=== PATIENT | male | born 1995 | race African-American/Black ===

== ENCOUNTER 2021-06-17 22:07 | Observation (INO) | payer SELFPAY ==
--- NOTE | ~2021-06-17 | XR_ITS ---
EXAMINATION: XR chest 2V DATE: 06/17/2021 23:07 INDICATION: Chest pain, body aches and diarrhea TECHNIQUE: PA and lateral views of the chest were obtained. COMPARISON: None FINDINGS: The lungs are clear with no focal airspace opacities, pulmonary edema, pleural effusion or pneumothor ax. The cardiomediastinal silhouette is normal. Visualized bones and soft tissues are unremarkable. IMPRESSION: 1. No acute cardiopulmonary disease. Reviewed, dictated and finalized at location A.
--- NOTE | ~2021-06-17 | CT_ITS ---
EXAMINATION: CT abdomen pelvis w con DATE: 06/18/2021 02:35 INDICATION: Abdominal pain, nausea, vomiting and diarrhea for 2 days TECHNIQUE: Computed tomography (CT) of the abdomen and pelvis was performed with 100 CC Omnipaque 350 intravenous contrast. Automated exposure control and iterative reconstruction technique were employe d. Exam dose: 525.69 mGy-cm total exam DLP. COMPARISON: 06/2021 PA and lateral chest FINDINGS: Normal heart size. The lung bases are clear of infiltrate or consolidation. No pericardial or pleural effusion. Bilateral gynecomastia. The liver, gallbladder, bile ducts, pancreas, pancreatic duct and spleen are unremarkable. Normal morphology of the adrenal glands. No renal mass lesion or urinary tract calculus or hydroureteronephrosis. Normal caliber of the abdominal aorta. No intraperitoneal or retroperitoneal or pelvic mass lesion or adenopathy or ascites. The urinary bladder and prostate gland are unremarkable. The appendix measures up to 8 mm diameter with suggestion of small thickening. No periappendiceal fat stranding or fluid is noted. Recommend clinical correlation for possible acute appendicitis. Fluid levels are noted in the nondilated nonobstructed: Irregular consistent with history of diarrhea . No bowel obstruction or colon wall thickening, pneumatosis or intraperitoneal free air. Deformity of the right femoral head, possibly due to osteonecrosis. IMPRESSION: Appendiceal diameter up to 8 mm with suggestion of some thickening of the appendiceal wa ll. Acute appendicitis is not excluded. Clinical correlation is advised. Colonic air-fluid levels, consistent with history of diarrhea; no bowel obstruction or colon wall thi ckening or intraperitoneal free air Right femoral head chronic deformity Reviewed, dictated and finalized at Location [facility]. Reviewed, dictated and finalized at location A. IMPRESSION: Appendiceal diameter up to 8 mm with suggestion of some thickening of the appendiceal wall. Acute appendicitis is not excluded. Clinical correlat ion is advised. Colonic air-fluid levels, consistent with history of diarrhea; no bowel obstruc tion or colon wall thickening or intraperitoneal free air Right femoral head chronic deformity
[2021-06-17 22:31] VITALS: BP 136/84; PULSE 115; RESP 16; TEMP 37.3; O2SAT 99
--- NOTE | 2021-06-17 22:41 | ECG_ITS ---
Measurements Intervals [place] Rate: 111 P: 54 GA: 151 QRS: 31 QRSD: 94 T: 31 QT: 288 QTc: 392 Interpretive Statements SINUS TACHYCARDIA ABNORMAL ECG Electronically Signed On 06-18-2021 6:33:46 CDT by Jamari Smith D.O.
[2021-06-17 23:04] LABS: Basophils Percent Auto 0.2 % (0.2-1.2); Hematocrit 51.1 % (42.0-52.0); Hemoglobin 16.2 g/dL (14.0-18.0); Immature Granulocyte Absolute 0.02 K/mm3 (0.00-0.031); Immature Granulocyte Percent A 0.2 % (0-0.5); Lymphocytes Absolute Auto 1.88 K/mm3 (0.9-3.2); Lymphocytes Percent Auto 19.7 % (18.3-44.2); Mean Corpuscular HGB Conc 31.7 g/dl (32-36); Mean Corpuscular Hemoglobin 27.1 pg (26-34); Mean Corpuscular Volume 85.6 fl (80-100); Mean Platelet Volume 9.5 fl (7.4-10.4); Monocytes Absolute Auto 0.6 K/mm3 (0.1-0.6); Monocytes Percent Auto 6.3 % (2.6-8.5); Neutrophils Percent Auto 73.6 % (45.5-73.1); Platelet Count Result 278 k/mm3 (150-375); Red Blood Count 5.97 M/mm3 (4.6-6.20); Red Cell Distribution Width 12.5 % (11.5-14.5); White Blood Count 9.6 K/mm3 (4.5-10.0)
[2021-06-17 23:19] LABS: Alanine Aminotransferase 32 U/L (4-50); Albumin Level 5.5 g/dL (3.5-5.1); Alkaline Phosphatase 98 U/L (38-126); Anion Gap 15 mmol/L (8-16); Aspartate Amino Transferase 36 U/L (17-59); Bilirubin,Total 1.6 mg/dL (0.2-1.3); Blood Urea Nitrogen 23 mg/dL (9-20); Calcium 9.8 mg/dL (8.4-10.2); Carbon Dioxide 19 mmol/L (22-30); Chloride 102 mmol/L (98-107); Estimated CRCL calculation 82 ml/min; Estimated Glomerular Filt Rate > 60; Glucose 96 mg/dL (65-110); Lipase 31 U/L (23-300); Sodium 136 mmol/L (137-145)
[2021-06-17 23:30] LABS: Troponin I < 0.012 ng/mL (0.000-0.034)
--- NOTE | 2021-06-18 01:36 | PC.NURSE ---
pt states he is unable to void at this time.
--- NOTE | 2021-06-18 01:48 | ED.NAVMDI ---
HPI - Nausea/Vomiting/Diarrhea General Chief complaint: Nausea/Vomiting/Diarrhea Stated complaint: Diarrhea, bodyaches Time Seen by Provider: 06/18/21 01:34 Source: patient Mode of arrival: ambulatory Limitations: no limitations History of Present Illness HPI Narrative: Patient is a 26-year-old male, HIV positive, on current retrovirals, presenting to the emergency department for evaluation of nausea, vomiting, abdominal pain and diarrhea. Patient reports he has been unwell over the past 48 hours with difficulty tolerating solid food intake, as well as watery diarrhea. Patient reports generalized abdominal pain that seems to localize in the right and left lower quadrant. He denies any significant flank tenderness. He reports mild dysuria without hematuria. Patient states he has been able to tolerate water, small amount of liquid today. He denies rhinorrhea, congestion, cough or shortness of breath. He denies chest pain. He denies recent sick contacts. He is not vaccinated for COVID and denies history of known COVID infection. Patient has been compliant with his HIV medications. He follows at [facility]. Related Data Allergies Allergy/AdvReac Type Severity Reaction Status Date / Time No Known Allergies Allergy Verified 06/17/21 22:35 Review of Systems Review of Systems: CONSTITUTIONAL: Reports subjective fever and chills EYES: Denies visual changes, redness, or discharge. ENT: Denies rhinorrhea, congestion, sore throat, or otalgia. CARDIOVASCULAR: Denies chest pain, palpitations, or edema. RESPIRATORY: Denies cough or dyspnea. GASTROINTESTINAL: Reports abdominal pain, nausea, vomiting and diarrhea GENITOURINARY: Reports dysuria without hematuria SKIN: Denies rash or itching. MUSCULOSKELETAL: Denies back pain, joint pain, or myalgia. NEUROLOGIC: Denies headache, numbness, or weakness. [facility] Social History Social History (Updated 06/18/21 @ 01:51 by Marnie Marc MD) Smoking status: Never smoker Alcohol intake: never Substance use: current Substance use type: marijuana Gender identity (if verbalized by the patient): Male Sexual Orientation (if Verbalized by the Patient): Lesbian, [place], or Homosexual Exam Narrative: GENERAL: Awake, alert, conversant HEAD: Normocephalic, atraumatic. EYES: PERRLA and EOMI. ENT: Nares clear, no rhinorrhea or epistaxis. Mucous membranes dry. NECK: Supple. CHEST: No respiratory distress, breathing even and non labored HEART: Tachycardic rate, sinus rhythm ABDOMEN:Non distended, mild tenderness throughout, mostly in the right and left lower quadrant without rebound, rigidity or guarding, no flank tenderness bilaterally EXTREMITIES: Normal range of motion. No edema. SKIN: Warm, dry, no rash. NEURO:No focal deficits. Alert and oriented x3 Course Vital Signs Vital signs: Vital Signs Temperature 37.3 C 06/17/21 22:31 Pulse Rate 115 H 06/17/21 22:31 Respiratory Rate 16 06/17/21 22:31 Blood Pressure 136/84 06/17/21 22:31 Pulse Oximetry 99 06/17/21 22:31 Temperature 37.3 C 06/17/21 22:31 Pulse Rate 115 H 06/17/21 22:31 Respiratory Rate 16 06/17/21 22:31 Blood Pressure 136/84 06/17/21 22:31 Pulse Oximetry 99 06/17/21 22:31 MDM - Nausea/Vomiting/Diarrhea MDM Narrative Medical decision making narrative: Patient presenting for evaluation of abdominal pain, nausea, vomiting, diarrhea. At time of assessment, ABCs are intact and vital signs are notable for tachycardia. Laboratory results show no leukocytosis but patient does have a left shift. No severe electrolyte derangement. No acute kidney injury. CT scan is concerning for colonic contents which may be due to sequela of diarrheal illness. Patient also with mildly enlarged appendix measuring 8 mm at its midportion. There is no evidence of adjacent inflammatory change. On reassessment, patient does have tenderness in the right lower quadrant without rebound, rigidity or guardin
[2021-06-18] MEDS: MORPHINE SULFATE (*CRX) 4 MG/ML INJ IV PUSH (02:12)
[2021-06-18] MEDS: SODIUM CHLORIDE 0.9% IV 1,000 ML 999 ML IV CONT (02:14)
[2021-06-18] MEDS: DICYCLOMINE HCL INJ 20 MG/2 ML VIAL IM (02:14)
[2021-06-18] MEDS: ONDANSETRON INJ 4 MG/2 ML VIAL IV PUSH (02:14)
[2021-06-18 03:18] LABS: SARS-CoV-2 RNA PCR Negative
[2021-06-18 03:44] LABS: Appearance Urine Clear (Clear); Bilirubin Urine 1+ (Negative); Blood Urine 2+ (Negative); Color Urine Yellow (Yellow); Glucose Urine UA Negative (Negative); Ketones Urine Trace mg/dL (Negative); Leukocyte Esterase Ur Negative LEU/UL (Negative); Nitrate Urine Negative (Negative); Protein Urine 3+ mg/dL (Negative); Urobilinogen Urine 0.2 mg/dL (<2.0)
[2021-06-18 03:57] LABS: Mucus Urine Moderate /lpf; Squamous Epithelial Cell Urine Rare /hpf (Few); WBC Urine 0-3 /hpf
[2021-06-18 04:02] LABS: Add Urine Microscopic? YES
[2021-06-18 07:00] VITALS: BMI 32.5
--- NOTE | 2021-06-18 07:00 | ADMGEN ---
This patient, Pasquale Broussard, was admitted to [facility] Surg Room 316-02. Patient/family oriented to hospital policies and general routines including ID bracelet, bed and alarms, visiting hours, pain management, procedures, bathroom and other care routines, personal items, smoking policy, room service/diet, and visiting hours. Information on how to activate the Rapid Response Team has been discussed. Patient/Family are encouraged to report perceived risks to care and to ask questions if they do not understand what they are told or what they should do.
--- NOTE | 2021-06-18 10:13 | PM.CNGS ---
Assessment and Plan Assessment and plan (1) Colitis: Code(s): K52.9 - Noninfective gastroenteritis and colitis, unspecified Status: Acute Assessment and Plan: Patient presented with nausea, vomiting, and diarrhea. He was found to have right lower quadrant abdominal pain and tenderness in the ER. CT scan of abdomen and pelvis reviewed and discussed with the patient in detail. There was findings of a mildly dilated appendix measuring 8 mm with no surrounding inflammatory stranding. When seeing the patient this morning, he is no longer having any abdominal pain and his abdominal exam is completely benign. He did not have any right lower quadrant tenderness on exam. Clinically this correlates more with colitis and less likely acute appendicitis. Would recommend to continue to treat for colitis with IV fluids for hydration and antiemetics. Will test for C. Diff. Okay from our standpoint to start advancing his diet. No plans for surgical intervention. (2) Abnormal CT of the abdomen: Code(s): R93.5 - Abnormal findings on diagnostic imaging of other abdominal regions, including retroperitoneum Status: Acute Assessment and Plan: CT shows a mildly enlarged appendix measuring 8 mm, but there is no surrounding inflammatory stranding. The patient's abdominal exam is completely benign. This does not correlate with acute appendicitis and would recommend treating for colitis as mentioned above. I did discuss signs and symptoms of acute appendicitis and to return to the ER if any occur once discharged. (3) HIV positive: Code(s): Z21 - Asymptomatic human immunodeficiency virus [HIV] infection status Status: Chronic Assessment and Plan: Taking Symtuza for antiretroviral therapy. Management per Hospitalist. Additional Plan I have discussed the patient's case and plan of care with Dr. Lindsey. Thank you for allowing us to see the patient in consultation. History of Present Illness Consult details Consult date: 06/18/21 Reason for consult: other (CT findings an enlarged appendix measuring 8 mm) Requesting physician: Marnie Marc MD Narrative: This is a 26-year-old male was positive for HIV, who presented to the emergency department with complaints of vomiting and diarrhea. He reports initially having diarrhea that started 2 days ago. Reports more than 10 liquid stools per day. Yesterday, he developed nausea with multiple episodes of vomiting. Denies bloody emesis or coffee-ground emesis. Reports chills, but no fevers. Yesterday, he also developed generalized abdominal pain. Reports this is a cramping abdominal pain without any alleviating factors. Also no aggravating factors. Denies any worsening pain with movement, bending, or walking. Due to the persistent symptoms, he presented to the ER for evaluation. CT scan of abdomen pelvis showed colonic air-fluid levels consistent with diarrhea, and an appendix that measures up to 8 mm in diameter with suggestion of some thickening of the appendiceal wall but no surrounding inflammatory stranding. Labs showed a white blood cell count 9600. The patient was admitted to the hospitalist service and made NPO. He was started on IV fluids, antiemetics, and analgesics. He has also been started on IV Zosyn. Our service has been consulted for surgical evaluation of the abnormal findings of the appendix on CT. The patient has as seen on the medical floor. He denies any abdominal pain at this time. He reports feeling overall better with resolution of his nausea and no vomiting since admission. He continues to have diarrhea this morning. No close contacts with similar symptoms. The patient is HIV positive and takes Symtuza daily for his antiretroviral treatment. CD4 ordered and pending, as well as STD testing. Review of Systems Review of Systems: All systems reviewed & are unremarkable except as noted in HPI and below Constitutional: Constitutio
[2021-06-18 10:21] VITALS: BP 124/80; PULSE 98; RESP 18; TEMP 36.6; O2SAT 97
--- NOTE | 2021-06-18 11:05 | PM.IMHP ---
H&P: HPI History of Present Illness Date/Time: 06/18/21 11:02 Chief Complaint: nausea vomiting Narrative: 26-year-old HIV + M presented to the emergency department with complaints of non bloody vomiting and diarrhea. Reports more than 10 liquid stools per day for the last 2 days associated w abd cramping improved w defecation, decreased appetite, and weakness. Denies fever, incontinence, tenesmus, recent travel, known sick contacts. He is compliant w HIV tx. When symptoms did not resolve he sought medical attention. CT scan of abdomen pelvis showed colonic air-fluid levels consistent with diarrhea, and an appendix that measures up to 8 mm in diameter with suggestion of some thickening of the appendiceal wall but no surrounding inflammatory stranding w/ WBC 9.6 PMFSH Past Medical History Medical History (Updated 06/18/21 @ 17:25 by Yesika Oconnor MD) HIV positive Family History Family History (Updated 06/18/21 @ 10:28 by SEAN Franklin) Other No pertinent family history Social History Social History (Updated 06/18/21 @ 17:04 by Yesika Oconnor MD) Smoking status: Never smoker Alcohol intake: current Drinks per week: 4 Substance use: current Substance use type: marijuana Other substance usage details: Occasional, weekly Gender identity (if verbalized by the patient): Male Sexual Orientation (if Verbalized by the Patient): Lesbian, [place], or Homosexual Spiritual care concerns: No Meds Home Medications and Allergies Home Medications Medication Instructions Recorded Confirmed Type afxdqcuqh-gymh-eltlz-tenof ala 1 tablet PO DAILY 06/18/21 06/18/21 History [Symtuza] ondansetron 4 mg PO Q8H PRN 7 Days #20 tablet 06/18/21 Rx Allergies Allergy/AdvReac Type Severity Reaction Status Date / Time No Known Allergies Allergy Verified 06/17/21 22:35 Vital Signs Vital Signs - 24 hr 06/17/21 22:31 06/18/21 10:21 06/18/21 15:50 Temperature 99.2 F 97.9 F 99.5 F Pulse Rate 115 H 98 94 Respiratory Rate 16 18 18 Blood Pressure 136/84 124/80 136/91 H Pulse Oximetry 99 97 98 Exam Const: General: comfortable and no acute distress HENMT: General nose exam: Normal nares present Mouth: Yes moist mucous membranes Eyes: General: appearance normal, both eyes and all related structures Neck: Neck: supple and no JVD Lymphatic: lymphadenopathy not noted Resp: Effort & Inspection: normal respiratory effort Auscultation: clear to auscultation bilaterally Cardio: Rate: regular rate Rhythm: regular rhythm GI: Inspection: non-distended GI Palp: Yes Soft to palpation, No Tenderness to palpation present (GI) and No Guarding due to palpation present (GI) Skin: General skin exam: normal color and no rashes or lesions noted Neuro: Cognition (Neuro): normal cognition Speech: normal speech Motor exam (neuro): 5/5 motor strength present throughout and Normal motor muscle tone present throughout Extrem: General: normal to inspection, normal exam except as noted, no edema and no pedal edema Psych: Mental Status: mental status grossly normal Affect: normal affect, No Sad affect present and No Anxious affect present Attitude: not belligerent Thought content: No Suicidality present and No Depressive thoughts present H&P: Results Labs Labs: Short CBC 06/17/21 Range/Units 22:48 WBC 9.6 (4.5-10.0) K/mm3 Hgb 16.2 (14.0-18.0) g/dL Hct 51.1 (42.0-52.0) % Plt Count 278 (150-375) k/mm3 BMP 06/17/21 06/17/21 22:49 22:49 Sodium Cancelled 136 L Potassium Cancelled 4.0 Chloride Cancelled 102 Carbon Dioxide Cancelled 19 L BUN Cancelled 23 H Creatinine Cancelled 1.20 Glucose Cancelled 96 Calcium Cancelled 9.8 Cardiac Enzymes 06/17/21 Range/Units 22:49 Troponin I < 0.012 (0.000-0.034) ng/mL Liver Function 06/17/21 06/17/21 Range/Units 22:49 22:49 Total Bilirubin Cancelled 1.6 H AST Cancelled 36 ALT Cancelle
[2021-06-18] MEDS: LACTATED RINGERS 1,000 ML 125 ML IV CONT (13:56)
[2021-06-18 14:50] LABS: Toxigenic C. Diff NEGATIVE (NEGATIVE)
[2021-06-18 15:50] VITALS: BP 136/91; PULSE 94; RESP 18; TEMP 37.5; O2SAT 98
[2021-06-18 22:00] VITALS: BP 126/76; PULSE 92; RESP 18; TEMP 36.2; O2SAT 98
[2021-06-19] MEDS: LACTATED RINGERS 1,000 ML 125 ML IV CONT ×2 (00:09→10:00)
[2021-06-19 06:00] VITALS: BP 125/75; PULSE 98; RESP 18; TEMP 36.6; O2SAT 98
[2021-06-19 07:08] LABS: Basophils Percent Auto 0.4 % (0.2-1.2); Eosinophils Absolute Auto 0.1 K/mm3 (0-0.3); Eosinophils Percent Auto 1.1 % (0-4.4); Hematocrit 43.9 % (42.0-52.0); Hemoglobin 14.4 g/dL (14.0-18.0); Immature Granulocyte Absolute 0.02 K/mm3 (0.00-0.031); Immature Granulocyte Percent A 0.3 % (0-0.5); Lymphocytes Absolute Auto 1.69 K/mm3 (0.9-3.2); Lymphocytes Percent Auto 21.4 % (18.3-44.2); Mean Corpuscular HGB Conc 32.8 g/dl (32-36); Mean Corpuscular Hemoglobin 27.7 pg (26-34); Mean Corpuscular Volume 84.4 fl (80-100); Mean Platelet Volume 9.6 fl (7.4-10.4); Monocytes Absolute Auto 0.7 K/mm3 (0.1-0.6); Neutrophils Absolute Auto 5.4 K/mm3 (1.3-6.7); Neutrophils Percent Auto 67.8 % (45.5-73.1); Platelet Count Result 250 k/mm3 (150-375); Red Cell Distribution Width 12.4 % (11.5-14.5); White Blood Count 7.9 K/mm3 (4.5-10.0)
[2021-06-19 07:18] LABS: Alanine Aminotransferase 22 U/L (4-50); Albumin Level 4.5 g/dL (3.5-5.1); Alkaline Phosphatase 73 U/L (38-126); Anion Gap 9 mmol/L (8-16); Aspartate Amino Transferase 33 U/L (17-59); Bilirubin,Total 1.7 mg/dL (0.2-1.3); Blood Urea Nitrogen 17 mg/dL (9-20); Calcium 8.7 mg/dL (8.4-10.2); Carbon Dioxide 25 mmol/L (22-30); Chloride 102 mmol/L (98-107); Estimated CRCL calculation 89 ml/min; Estimated Glomerular Filt Rate > 60; Glucose 82 mg/dL (65-110); Potassium 3.3 mmol/L (3.4-5.0); Sodium 136 mmol/L (137-145)
--- NOTE | 2021-06-19 12:30 | PC.NURSE ---
Patient leaving AMA . Dr Oconnor aware of AMA.
--- NOTE | 2021-06-19 15:40 | PM.DS ---
DS: Admitting Diagnosis Discharge Date 06/19/21 Admitting Diagnosis (1) Gastroenteritis: Code(s): K52.9 - Noninfective gastroenteritis and colitis, unspecified Status: Acute (2) HIV positive: Code(s): Z21 - Asymptomatic human immunodeficiency virus [HIV] infection status Status: Chronic (3) Abnormal CT of the abdomen: Code(s): R93.5 - Abnormal findings on diagnostic imaging of other abdominal regions, including retroperitoneum Status: Acute (4) Abdominal pain, acute, right lower quadrant: Code(s): R10.31 - Right lower quadrant pain Status: Acute (5) Dehydration: Code(s): E86.0 - Dehydration Status: Acute DS: Discharge Diagnosis Discharge Diagnosis (1) Dehydration: Code(s): E86.0 - Dehydration Status: Acute (2) Abnormal CT of the abdomen: Code(s): R93.5 - Abnormal findings on diagnostic imaging of other abdominal regions, including retroperitoneum Status: Acute (3) HIV positive: Code(s): Z21 - Asymptomatic human immunodeficiency virus [HIV] infection status Status: Chronic (4) Gastroenteritis: Code(s): K52.9 - Noninfective gastroenteritis and colitis, unspecified Status: Acute (5) Abdominal pain, acute, right lower quadrant: Code(s): R10.31 - Right lower quadrant pain Status: Acute (6) Left against medical advice: Code(s): Z53.29 - Procedure and treatment not carried out because of patient's decision for other reasons Status: Acute (7) Noncompliance with medication regimen: Code(s): Z91.14 - Patient's other noncompliance with medication regimen Status: Acute DS: Summary Hospital Course Reason for hospitalization: diarrhea Hospital Course: 26-year-old HIV-positive male not compliant with his retroviral HIV regimen presented to the emergency room with chief complaint of profuse watery diarrhea nonbloody for [address] imaging was concerning for possible acute appendicitis. Surgery saw patient and felt that acute appendicitis was not an active diagnosis. Unfortunately the patient left against medical advice prior to receiving it he of this stool studies that were ordered or being seen by the daily release and dupe printer. Time Spent with Patient Time attestation: Total time spent providing and/or coordinating discharge services: Exam Const: General: comfortable and no acute distress HENMT: General nose exam: Normal nares present Mouth: Yes moist mucous membranes Eyes: General: appearance normal, both eyes and all related structures Neck: Neck: supple and no JVD Lymphatic: lymphadenopathy not noted Resp: Effort & Inspection: normal respiratory effort Auscultation: clear to auscultation bilaterally Cardio: Rate: regular rate Rhythm: regular rhythm GI: Inspection: non-distended Skin: General skin exam: normal color and no rashes or lesions noted Neuro: Cognition (Neuro): normal cognition Speech: normal speech Motor exam (neuro): 5/5 motor strength present throughout and Normal motor muscle tone present throughout Extrem: General: normal to inspection, normal exam except as noted, no edema and no pedal edema Psych: Mental Status: mental status grossly normal Affect: normal affect, No Sad affect present and No Anxious affect present Attitude: not belligerent DS: Data Data Completed and Pending Labs on day of discharge: Labs from last 24 hours 06/19/21 06/19/21 06/18/21 06:08 06:08 19:55 WBC 7.9 RBC 5.20 Hgb 14.4 Hct 43.9 MCV 84.4 MCH 27.7 MCHC 32.8 RDW 12.4 Plt Count 250 MPV 9.6 Immature Gran % (Auto) 0.3 Neut % (Auto) 67.8 Lymph % (Auto) 21.4 [place] % (Auto) 9.0 H Eos % (Auto) 1.1 Baso % (Auto) 0.4 Lymph # (Auto) 1.69 [place] # (Auto) 0.7 H Eos # (Auto) 0.1 Baso # (Auto) 0.0 Abs Immat Gran (auto) 0.02 Absolute Neuts (auto) 5.4 Absolute Nucleated RBC 0.0 Nucleated RBC % 0.0 So
[2021-06-23 13:21] LABS: Absolute CD4 Count 409 cells/uL (490-1740); Lymphocytes, Absolute 1708 cells/uL (850-3900); Percent CD4 Cells 24 % (30-61)
== END 2021-06-19 12:30 | disposition left against medical advice (07) ==
LOC: ANHED 06-18 05:49 → ANH3MEDSUR 06-19 10:24
PROVIDERS: Surgery; Admitting Provider Internal Medicine; Emergency Provider Emergency Medicine; Visit Provider Hospitalist
DX: K52.9 Noninfective gastroenteritis and colitis, unspecified (principal); R93.5 Abnormal findings on diagnostic imaging of other abdominal regions, including retroperitoneum; Z21 Asymptomatic human immunodeficiency virus [HIV] infection status; Z79.899 Other long term (current) drug therapy; F12.90 Cannabis use, unspecified, uncomplicated; E86.0 Dehydration; R10.31 Right lower quadrant pain; Z53.29 Procedure and treatment not carried out because of patient's decision for other reasons; Z91.14 Patient's other noncompliance with medication regimen; Z20.822 Contact with and (suspected) exposure to COVID-19
CPT/HCPCS: 36415; 71046; 74177; 80053; 81001; 83690; 84484; 85025; 86361; 87045; 87177; 87209; 87269; 87272; 87427; 87491; 87493; 87591; 87804; 89055; 93005; 96361; 96365; 96366; 96372; 96375; 96376; 99285; C9803; G0378; G0379; J0131; J0500; J2270; J2405; J2543; J7030; J7120; Q9967; U0003; U0005